=== PATIENT | female | born 2000 | race Caucasian/White ===

== ENCOUNTER → 2020-06-28 12:15 | Outpatient (BNVA) | payer SELFPAY | PROVIDERS: Visit Provider Nurse Practitioner Family | DX: Z11.59 Encounter for screening for other viral diseases (principal) | CPT/HCPCS: 87635 ==

== ENCOUNTER → 2021-04-04 11:41 | Outpatient (BNVA) | payer OTHER, SELFPAY | PROVIDERS: Visit Provider Nurse Practitioner Family | DX: Z20.822 Contact with and (suspected) exposure to COVID-19 (principal); J45.30 Mild persistent asthma, uncomplicated; J06.9 Acute upper respiratory infection, unspecified | CPT/HCPCS: 87635 ==

== ENCOUNTER 2022-01-12 11:34 | Emergency (ER) | payer MEDICAID, SELFPAY ==
[2022-01-12 12:24] VITALS: BP 134/82; PULSE 75; RESP 13; TEMP 36.8; O2SAT 99; BMI 27.3
--- NOTE | 2022-01-12 13:12 | ED_ITS ---
HPI - Nausea/Vomiting/Diarrhea General: Chief complaint: Abdominal Pain Stated complaint: Abd Pains Time Seen by Provider: 01/12/22 12:59 History of Present Illness: Patient is a 21-year-old female comes to the ED with nausea. Symptoms started this morning. She is also feeling a little bit of dizziness. 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 She feels like some of the nausea and dizziness is probably due to the PFT test. She did state that both her kids have had a GI bug with nausea and vomiting and she thinks she is starting to develop the same symptoms they had. Associated nausea: No Associated symtoms: Denies change in vision, chest pain, dysuria, fatigue, headache(s), nausea or palpitations Review of Systems Const: Denies: fever(s), chills or fatigue Eyes: Denies: change in vision or eye discomfort ENMT: Denies: throat pain, odynophagia, nasal discharge or nasal congestion Card: Denies: chest pain, palpitations, edema, swelling of feet/ankles, dyspnea on exertion or orthopnea Resp: Denies: dyspnea, productive cough or non-productive cough GI: Denies: abdominal pain, nausea, vomiting, diarrhea, constipation or hematochezia : Denies: flank pain, dysuria or hematuria Musc: Denies: neck pain, back pain or extremity swelling Skin/Breast: Denies: rash or new lesions Neuro: Denies: headache(s), numbness in extremities or weakness in extremities PFS ED PFSH: Medical History (Updated 04/04/21 @ 09:33 by JOHNY Forte) Asthma Course Vital Signs: Vital signs: Vital Signs Temperature 98.2 F 01/12/22 12:24 Pulse Rate 75 01/12/22 12:24 Respiratory Rate 13 01/12/22 12:24 Blood Pressure 134/82 01/12/22 12:24 Pulse Oximetry 99 01/12/22 12:24 Discharge Plan Discharge Condition: Stable Prescriptions: No Action albuterol sulfate [ProAir HFA] 90 mcg/actuation HFA aerosol inhaler 2 puff INHALATION Q6H [id number] Coding Level of Care Code ED Stone Carver for Aureag Tamar
--- NOTE | 2022-01-12 13:47 | ED_ITS ---
HPI - Abdominal Pain General: Chief Complaint: Abdominal Pain Stated Complaint: Abd Pains Time Seen by Provider: 01/12/22 12:59 History of Present Illness: Patient is a 21-year-old female comes to the ED with abdominal pain. Patient states that she has had this pain before in the past and she has flareups of this multiple times a year. She has been evaluated at [facility] before and they told her that she likely has gastritis and put her on omeprazole. Her abdominal pain is in the epigastric region and she describes it as a burning pain. She rates it a 7 out of 10. Says it worsens with certain foods especially spicy foods. She has some nausea but denies any emesis. Associated Symptoms: Reports heartburn and nausea; Denies chills, constipation, diarrhea, dysuria, fever(s), hematochezia, hematuria and vomiting Review of Systems Const: Denies: fever(s), chills or fatigue Eyes: Denies: change in vision or eye discomfort ENMT: Denies: throat pain, odynophagia, nasal discharge or nasal congestion Card: Denies: chest pain, palpitations, edema, swelling of feet/ankles, dyspn ea on exertion or orthopnea Resp: Denies: dyspnea, productive cough or non-productive cough GI: Reports: abdominal pain (epigastric buring pain), nausea and heartburn; Denies: vomiting, diarrhea, constipation or hematochezia : Denies: flank pain, dysuria or hematuria Musc: Denies: neck pain, back pain or extremity swelling Skin/Breast: Denies: rash or new lesions Neuro: Denies: headache(s), numbness in extremities or weakness in extremities [facility] ED PFSH: Medical History Asthma No pertinent family history Physical Exam Const: COMMON NORMALS: no acute distress, patient oriented x3, healthy appearing and alert GENERAL APPEARANCE: cooperative and comfortable HENMT: COMMON NORMALS: normocephalic HEAD & SCALP: normocephalic MOUTH: Normal oral and palatal mucosa present THROAT: posterior oropharynx normal and uvula midline Eye: COMMON NORMALS: Equal, round and reactive pupils present and conjunctivae normal CONJUNCTIVA: Yes conjunctivae normal PUPIL: Yes Equal, round and reactive pupils present Neck/C-Spine: COMMON NORMALS: supple GENERAL: Yes normal visual inspection Resp: COMMON NORMALS: normal respiratory effort, No retractions, No use of accessory muscles and clear to auscultation bilaterally AUSCULTATION: clear t o auscultation bilaterally Cardio: COMMON NORMALS: regular rate, regular rhythm, S1 normal heart sound present, S2 normal heart sound present, No gallops present (Cardio), No clicks present (Cardio), No murmurs present (Cardio) and Peripheral pulses 2+ throughout RATE: regular rate RHYTHM: regular rhythm HEART SOUNDS: S1 normal heart sound present and S2 normal heart sound present PERIPHERAL PULSES: Peripheral pulses 2+ throughout GI: COMMON NORMALS: Normal to inspection, nondistended, normoactive bowel sounds present, Soft to palpation and no masses PALPATION: Yes Soft to palpation and Yes Tenderness to palpation present (GI) (Mild epigastric tende rness) : COMMON NORMALS: Yes no CVA tenderness BLADDER/KIDNEY EXAM: Yes no CVA tenderness Back/Pelvis: COMMON NORMALS: no CVA tenderness Extremity: COMMON NORMALS: normal to inspection Neuro: COMMON NORMALS: patient oriented x3 SENSORIUM/ORIENTATION: Yes alert GAIT: Yes Normal gait present Skin: GENERAL SKIN EXAM: dry skin Course Vital Signs: Vital signs: Vital Signs Temperature 98.2 F 01/12/22 12:24 Pulse Rate 63 01/12/22 14:10 Respiratory Rate 13 01/12/22 12:24 Blood Pressure 124/65 01/12/22 14:10 Pulse Oximetry 97 01/12/22 14:10 MDM - Abdominal Pain Medical Decision Making Patient has history of acid reflux and is currently having a flareup of it. She is having some burning pain in the epigastric region. Vital stable. Patient appears nontoxic and in no acute distress or pain. Exam as mostly benign and she does have some mild epigastric tenderness. labs are unremarkable and H. pylori negative. Patient was given GI cocktail and her symptoms improved greatly. She is diagnosed with acid reflux and was discharged home with a prescription for Zofran and sucralfate. She was told to continue taking her omeprazole as previously prescribed. Return to ED precautions given. Follow-up with PCP in the next week for reevaluation. Patient understood and agreed with plan. Lab Data I reviewed the patient's lab results. : 01/12/22 14:11 01/12/22 15:56 Labs/Radiology: Laboratory Results WBC 9.7 10^3/uL (4.0-10.0) 01/12/22 14:11 RBC 4.71 10^6/uL (4.1-5.3) 01/12/22 14:11 Hgb 14.2 g/dL (11.5-15.3) 01/12/22 14:11 Hct 42.1 % (37.0-47.0) 01/12/22 14:11 MCV 89.4 fl (81-99) 01/12/22 14:11 MCH 30.1 pg (28.0-34.0) 01/12/22 14:11 MCHC 33.7 g/dL (30.0-36.0) 01/12/22 14:11 RDW 11.4 % (12.1-15.1) L 01/12/22 14:11 Plt Count 302 10^3/cmm (130-400) 01/12/22 14:11 MPV 10.7 fL (7.4-10.4) H 01/12/22 14:11 Neut % (Auto) 59.2 % 01/12/22 14:11 Lymph % (Auto) 30.2 % 01/12/22 14:11 Baldwin % (Auto) 6.5 % 01/12/22 14:11 Eos % (Auto) 2.8 % 01/12/22 14:11 Baso % (Auto) 1.0 % 01/12/22 14:11 Neut # (Auto) 5.73 10^3/uL (1.8-7.7) 01/12/22 14:11 Lymph # (Auto) 2.9 10^3/uL (0.8-4.8) 01/12/22 14:11 Baldwin # (Auto) 0.6 10^3/uL (0.2-0.9) 01/12/22 14:11 Eos # (Auto) 0.3 10^3/uL (0.0-0.8) 01/12/22 14:11 Baso # (Auto) 0.1 10^3/uL (0.0-0.1) 01/12/22 14:11 Nucleated RBC % (auto) 0 % 01/12/22 14:11 Nucleated RBCs # 0.0 /100WBC 01/12/22 14:11 Sodium 137 mmol/L (136-145) 01/12/22 15:56 Potassium 4.0 mmol/L (3.5-5.1) 01/12/22 15:56 Chloride 103 mmol/L (98-107) 01/12/22 15:56 Carbon Dioxide 22 mmol/L (22-29) 01/12/22 15:56 Anion Gap 16.0 (5-19) 01/12/22 15:56 BUN 9 mg/dL (6-20) 01/12/22 15:56 Creatinine 0.6 mg/dL (0.5-0.9) 01/12/22 15:56 GFR Calculation 123.9 mL/min (90-130) 01/12/22 15:56 Glucose 84 mg/dL (65-115) 01/12/22 15:56 Calculated Osmolality 282 mOsm/kg (285-295) L 01/12/22 15:56 Calcium 8.5 mg/dL (8.5-10.5) 01/12/22 15:56 Total Bilirubin 0.3 mg/dL (0.15-1.2) 01/12/22 15:56 AST 15 U/L (0-32) 01/12/22 15:56 ALT 12 U/L (0-33) 01/12/22 15:56 Alkaline Phosphatase 50 IU/L (35-105) 01/12/22 15:56 Total Protein 6.5 g/dL (6.6-8.7) L 01/12/22 15:56 Albumin 4.3 g/dL (3.5-5.2) 01/12/22 15:56 Globulin 2.2 g/dL (1.3-4.6) 01/12/22 15:56 HCG, Qual Negative (Negative) 01/12/22 15:16 Urine Color Yellow (Yellow) 01/12/22 15:16 Urine Appearance Clear (CLEAR) 01/12/22 15:16 Urine pH 6 (5-7) 01/12/22 15:16 Ur Specific Braxton 1.010 (1.005-1.030) 01/12/22 15:16 Urine Protein Neg (Negative) 01/12/22 15:16 Urine Glucose (UA) Norm (Normal) 01/12/22 15:16 Urine Ketones Negative (Negative) 01/12/22 15:16 Urine Blood Neg (Negative) 01/12/22 15:16 Urine Nitrate Negative (Negative) 01/12/22 15:16 Urine Bilirubin Neg (Negative) 01/12/22 15:16 Urine Urobilinogen Neg mg/dL (Negative) 01/12/22 15:16 Ur Leukocyte Esterase Negative (Negative) 01/12/22 15:16 H. pylori IgG Antibody Negative (Negative) 01/12/22 14:11 Discharge Plan Discharge Patient Disposition: Home Clinical Impression: Acid reflux disease Condition: Stable Prescriptions: New sucralfate 1 gram tablet 1 g PO Q6H 14 Days Qty: 56 0RF ondansetron 4 mg tablet,disintegrating 4 mg PO Q8H PRN (Reason: nausea and vomiting) Qty: 20 0RF No Action albuterol sulfate [ProAir HFA] 90 mcg/actuation HFA aerosol inhaler 2 puff INHALATION Q6H PRN (Reason: Shortness Of Breath) 0RF Discharge Orders: Discharge ED (Routine); Ordered 01/12/22 Ordered By: Myles Pagan Discharge Diet: Regular Discharge Activity: Resume usual activity Patient Instructions: GERD (Gastroesophageal Reflux Disease) (DC) Activity Restrictions/Additional Instructions: Follow-up with medical provider as directed in the next 5 to 7 days ree valuation. Continue taking your previously prescribed omeprazole daily as directed. Take medications as prescribed. Return to the ER or your medical provider if condition worsens. Please read and understand discharge instructions. Thank you for choosing [facility] for your healthcare needs today. Please realize this is an emergency room and that we are providing you with a medical screening exam and this may not be complete and all inclusive of all the testing and or work up that you may need to determine your ailment or severity of your illness. It is very important that you follow up as instructed or that you return to the Emergency Department should you have concerns or if your condition changes or worsens in any way. Coding Level of Care Code ED Centerless Grinder Operator for Sylvester Boyle Exam Comprehensive
[2022-01-12] MEDS: lidocaine 2% viscous 15 ML, aluminum-mag hydrox-simethicon 30 ML, sucralfate oral liq 1 GM PO (14:00)
[2022-01-12] MEDS: ondansetron 2 mg/ML SDV 2 mL 4 MG IVP (14:00)
[2022-01-12] MEDS: sodium chloride 0.9% 1,000 ML 999 ML IV (14:01)
[2022-01-12 14:10] VITALS: BP 124/65; PULSE 63; O2SAT 97
[2022-01-12 14:13] LABS: Basophils # 0.1 10^3/uL (0.0-0.1); Eosinophils # 0.3 10^3/uL (0.0-0.8); Eosinophils % 2.8 %; Hematocrit 42.1 % (37.0-47.0); Hemoglobin 14.2 g/dL (11.5-15.3); Lymphocytes # 2.9 10^3/uL (0.8-4.8); Lymphocytes % 30.2 %; Mean Corpuscular HGB Conc 33.7 g/dL (30.0-36.0); Mean Corpuscular Hemoglobin 30.1 pg (28.0-34.0); Mean Corpuscular Volume 89.4 fl (81-99); Mean Platelet Volume 10.7 fL (7.4-10.4); Monocytes # 0.6 10^3/uL (0.2-0.9); Monocytes % 6.5 %; Neutrophils # 5.73 10^3/uL (1.8-7.7); Neutrophils % 59.2 %; Nucleated Red Blood Cells % 0 %; Platelet Count 302 10^3/cmm (130-400); Red Blood Count 4.71 10^6/uL (4.1-5.3); Red Cell Distribution Width 11.4 % (12.1-15.1); White Blood Count 9.7 10^3/uL (4.0-10.0)
[2022-01-12 15:20] LABS: H. Pylori IgG Antibody Negative (Negative)
[2022-01-12 15:29] LABS: Add Urine Microscopic? NO; Charge for UA Resulting for Rev
[2022-01-12 15:41] LABS: Bilirubin Urine Neg (Negative); Blood Urine Neg (Negative); Glucose Urine UA Norm (Normal); HCG Qualitative Urine. Negative (Negative); Ketones Urine Negative (Negative); Leukocyte Esterase Urine Negative (Negative); Nitrate Urine Negative (Negative); Protein Urine Neg (Negative); Urine Appearance Clear (CLEAR); Urine Color Yellow (Yellow); Urobilinogen Urine Neg (Negative); pH Urine 6 (5-7)
[2022-01-12 16:31] LABS: Alanine Aminotransferase 12 U/L (0-33); Albumin Level 4.3 g/dL (3.5-5.2); Alkaline Phosphatase 50 IU/L (35-105); Aspartate Amino Transferase 15 U/L (0-32); Blood Urea Nitrogen 9 mg/dL (6-20); Calcium 8.5 mg/dL (8.5-10.5); Carbon Dioxide 22 mmol/L (22-29); Chloride 103 mmol/L (98-107); Globulin 2.2 g/dL (1.3-4.6); Glomerular Filtration Rate 123.9 mL/min (90-130); Glucose 84 mg/dL (65-115); Osmolality Calculated 282 mOsm/kg (285-295); Sodium 137 mmol/L (136-145); Total Bilirubin 0.3 mg/dL (0.15-1.2); Total Protein 6.5 g/dL (6.6-8.7)
[2022-01-12 16:55] VITALS: BP 124/65; PULSE 65; RESP 20; O2SAT 95
== END 2022-01-12 16:57 | disposition home or self-care (01) ==
PROVIDERS: Family Medicine; Emergency Provider Physician Assistant
DX: K21.9 Gastro-esophageal reflux disease without esophagitis (principal)
CPT/HCPCS: 80053; 81003; 81025; 85025; 86677; 96361; 96374; 99284; J2405; J7030

== ENCOUNTER 2022-01-13 18:23 | Emergency (ER) | payer MEDICAID, SELFPAY ==
[2022-01-13 18:29] VITALS: BP 105/67; PULSE 79; RESP 18; TEMP 36.3; O2SAT 97; BMI 27.3
--- NOTE | 2022-01-13 18:38 | W.ED.ABDPA2 ---
Documented by User: RITA Acuña 01/13/22 19:23 HPI - Abdominal Pain General: Chief Complaint: Abdominal Pain Stated Complaint: ABD pain Time Seen by Provider: 01/13/22 18:38 History of Present Illness: 21-year-old female comes in today with complaints of epigastric pain. Patient was seen yesterday and given a GI cocktail with relief of pain. Review of the labs noted no abnormalities in liver enzymes, urinalysis, CBC, lipase, and a negative hCG. Patient denies any vomiting or diarrhea. Patient reports mainly just pain and discomfort. Patient appears in mild to moderate discomfort. Patient appears nontoxic. Associated Symptoms: Denies fever(s) and vomiting Review of Systems General: Reports: 10 or more systems reviewed and unremarkable except in HPI and below Const: Denies: fever(s) Card: Denies: chest pain Resp: Denies: dyspnea GI: Reports: abdominal pain; Denies: vomiting : Denies: difficulty voiding PFS ED PFSH: Medical History Asthma No pertinent family history Physical Exam Const: COMMON NORMALS: alert Neck/C-Spine: COMMON NORMALS: full ROM Resp: COMMON NORMALS: normal respiratory effort and clear to auscultation bilaterally AUSCULTATION: clear to auscultation bilaterally Cardio: COMMON NORMALS: regular rate RATE: regular rate GI: COMMON NORMALS: Soft to palpation PALPATION: Yes Soft to palpation and Yes Tenderness to palpation present (GI) (epigastric) : COMMON NORMALS: Yes no CVA tenderness BLADDER/KIDNEY EXAM: Yes no CVA tenderness Back/Pelvis: COMMON NORMALS: no CVA tenderness Extremity: COMMON NORMALS: full ROM Neuro: SENSORIUM/ORIENTATION: Yes alert Course ED course: 0, patient was given a dose of a GI cocktail with immediate relief of symptoms. Discussed with patient prescription she was given yesterday she was not on any PPI at this time. I recommended we stop the Carafate and put her on pantoprazole 40 mg daily. I also discussed other treatment for reflux disease. Patient reported understanding and agreed to plan. Vital Signs: Vital signs: Vital Signs Temperature 97.3 F L 01/13/22 18:29 Pulse Rate 61 01/13/22 19:19 Respiratory Rate 14 01/13/22 19:19 Blood Pressure 97/65 01/13/22 19:19 Pulse Oximetry 97 01/13/22 18:29 MDM - Abdominal Pain Medical Decision Making Patient comes in today for exacerbation of abdominal pain and gastric reflux. Patient has had this problem before. Patient was started on Carafate and Zofran yesterday without any relief in symptoms. Patient was not on any PPI at this time. On exam abdomen soft with some epigastric tenderness. Vital signs are normal. Review of the labs from yesterday indicated no red flags such as abnormal liver enzymes, lipase, or . Differential diagnosis includes but not limited to peptic ulcer disease, gastritis, GERD. Patient was given a GI cocktail with relief of symptoms. Patient be started on pantoprazole 40 mg daily. Recommended use of Mylanta as needed for breakthrough symptoms while the pantoprazole works. Patient reported understanding of care plan need for follow-up or return to the ER and further investigation with primary care. Discharge Plan Discharge Patient Disposition: Home Clinical Impression: Acid reflux disease Qualifiers: Esophagitis presence: esophagitis presence not specified Qualified Code(s): K21.9 - Gastro-esophageal reflux disease without esophagitis Condition: Stable Prescriptions: New pantoprazole 40 mg tablet,delayed release (DR/EC) 40 mg PO DAILY Qty: 30 3RF No Action albuterol sulfate [ProAir HFA] 90 mcg/actuation HFA aerosol inhaler 2 puff INHALATION Q6H PRN (Reason: Shortness Of Breath) 0RF sucralfate 1 gram tablet 1 g PO Q6H 14 Days Qty: 56 0RF ondansetron 4 mg tablet,disintegrating 4 mg PO Q8H PRN (Reason: nausea and vomiting) Qty: 20 0RF Discharge Orders: Discharge ED (Routine); Ordered 01/13/22 Ordered By: Martínez Vale Discharge Diet: Usual diet Discharge Activity: Increase activity as tolerated Patient Instructions: Diet for Stomach Ulcers and Gastritis (ED), GERD (Gastroesophageal Reflux Disease) (ED), Opioid Safety Activity Restrictions/Additional Instructions: Stop Carafate. Take pantoprazole 40 mg, 30 minutes prior to the first meal of the day. It is very important to do this in order to prevent irritation of the stomach and esophagus. Avoid eating 2 hours before bedtime. Restrict alcoholic beverages to 1 a day or none. Avoid carbonated beverages. You may also notice other foods aggravate your reflux. If you have increased symptoms when you lie down at night you may try raising the head of your bed. This can be achieved by sleeping on 2 pillows, you must position the pillow so your shoulders are on the pillows so your stomach is below your chest. Also it has been shown that lying on the left side can reduce gastric symptoms. You will need to take pantoprazole at least for 3 to 6 months for full healing of the stomach lining and esophagus. Follow-up with primary care in 2 weeks. If symptoms persist you may need to have an increase in the dosing of the medication to twice a day, or further evaluation with EGD which is a scope looking into your stomach and esophagus. Coding Level of Care Code ED Physical Medicine Teacher for Chg Fwd Exam Detailed Documented by User: Olaf Oro DO 01/13/22 22:27 HPI - Abdominal Pain General: Chief Complaint: Abdominal Pain Stated Complaint: ABD pain Time Seen by Provider: 01/13/22 18:38 PFSH ED PFSH: Medical History Asthma No pertinent family history Course Vital Signs: Vital signs: Vital Signs Temperature 97.3 F L 01/13/22 18:29 Pulse Rate 61 01/13/22 19:19 Respiratory Rate 14 01/13/22 19:19 Blood Pressure 97/65 01/13/22 19:19 Pulse Oximetry 97 01/13/22 18:29 MDM - Abdominal Pain Medical Decision Making Patient comes in today for exacerbation of abdominal pain and gastric reflux. Patient has had this problem before. Patient was started on Carafate and Zofran yesterday without any relief in symptoms. Patient was not on any PPI at this time. On exam abdomen soft with some epigastric tenderness. Vital signs are normal. Review of the labs from yesterday indicated no red flags such as abnormal liver enzymes, lipase, or . Differential diagnosis includes but not limited to peptic ulcer disease, gastritis, GERD. Patient was given a GI cocktail with relief of symptoms. Patient be started on pantoprazole 40 mg daily. Recommended use of Mylanta as needed for breakthrough symptoms while the pantoprazole works. Patient reported understanding of care plan need for follow-up or return to the ER and further investigation with primary care. This patient was originally seen by RITA Ugarte.? I agree with his history, evaluation, and treatment. Discharge Plan Discharge Patient Disposition: Home Clinical Impression: Acid reflux disease Qualifiers: Esophagitis presence: esophagitis presence not specified Qualified Code(s): K21.9 - Gastro-esophageal reflux disease without esophagitis Condition: Stable Prescriptions: New pantoprazole 40 mg tablet,delayed release (DR/EC) 40 mg PO DAILY Qty: 30 3RF No Action albuterol sulfate [ProAir HFA] 90 mcg/actuation HFA aerosol inhaler 2 puff INHALATION Q6H PRN (Reason: Shortness Of Breath) 0RF sucralfate 1 gram tablet 1 g PO Q6H 14 Days Qty: 56 0RF ondansetron 4 mg tablet,disintegrating 4 mg PO Q8H PRN (Reason: nausea and vomiting) Qty: 20 0RF Discharge Orders: Discharge ED (Routine); Ordered 01/13/22 Ordered By: Martínez Vale Discharge Diet: Usual diet Discharge Activity: Increase activity as tolerated Patient Instructions: Diet for Stomach Ulcers and Gastritis (ED), GERD (Gastroesophageal Reflux Disease) (ED), Opioid Safety Activity Restrictions/Additional Instructions: Stop Carafate. Take pantoprazole 40 mg, 30 minutes prior to the first meal of the day. It is very important to do this in order to prevent irritation of the stomach and esophagus. Avoid eating 2 hours before bedtime. Restrict alcoholic beverages to 1 a day or none. Avoid carbonated beverages. You may also notice other foods aggravate your reflux. If you have increased symptoms when you lie down at night you may try raising the head of your bed. This can be achieved by sleeping on 2 pillows, you must position the pillow so your shoulders are on the pillows so your stomach is below your chest. Also it has been shown that lying on the left side can reduce gastric symptoms. You will need to take pantoprazole at least for 3 to 6 months for full healing of the stomach lining and esophagus. Follow-up with primary care in 2 weeks. If symptoms persist you may need to have an increase in the dosing of the medication to twice a day, or further evaluation with EGD which is a scope looking into your stomach and esophagus. Coding Level of Care Code ED Physical Medicine Teacher for Chg Fwd Exam Detailed
[2022-01-13] MEDS: lidocaine 2% viscous 15 ML, aluminum-mag hydrox-simethicon 30 ML, sucralfate oral liq 1 GM PO (18:49)
[2022-01-13 19:19] VITALS: BP 97/65; PULSE 61; RESP 14
[2022-01-13] MEDS: pantoprazole DR 40 mg Tablet PO (19:22)
== END 2022-01-13 19:30 | disposition home or self-care (01) ==
PROVIDERS: Emergency Provider Nurse Practitioner Family
DX: K21.9 Gastro-esophageal reflux disease without esophagitis (principal)
CPT/HCPCS: 99283

== ENCOUNTER 2022-02-16 09:43 | Day surgery (SDC) | payer MEDICAID, SELFPAY ==
[2022-02-16 06:58] VITALS: BMI 26.6
--- NOTE | 2022-02-16 09:50 | W.PM.OPSUD ---
Surgery/Procedure H&P Update DATE OF PROCEDURE: February 16, 2022 DATE H&P PERFORMED: 01/23/22 H&P UPDATE INFORMATION: I have reviewed H&P completed within last 30 days, I have examined patient prior to procedure and Changes to prior documentation as noted here (Patient was supposed to be getting an EGD and colonoscopy today but for some reason there was a miscommunication. She was counseled to have rescheduling but she elected to proceed with EGD today.) PREOP DIAGNOSIS: Abdominal pain and change in bowel habits PRIMARY INDICATION FOR PROCEDURE: The same PLANNED PROCEDURE: Operation Date: 02/16/22 11:15 Proposed Procedures p EGD 74558,R19.7,R10.13(Not Applicable) - Elian Baron MD
[2022-02-16 10:14] VITALS: BP 98/66; PULSE 66; RESP 18; TEMP 36.2; O2SAT 99
[2022-02-16 10:21] LABS: OR HCG Qualitative Urine Negative (Negative)
[2022-02-16] MEDS: sodium chloride 0.9% 1,000 ML 30 ML IV ×2 (10:30→12:00)
--- NOTE | 2022-02-16 11:10 | P.ANESASSM_ITS ---
Pre-Anesthetic Assessment Height/Weight: Height 1.73 m Weight 79.379 kg Temp Pulse Resp BP Pulse Ox 97.2 F L 66 18 98/66 99 02/16/22 10:14 02/16/22 10:14 02/16/22 10:14 02/16/22 10:14 02/16/22 10:14 Preop Diagnosis: Abdominal pain and change in bowel habits Operation Date: 02/16/22 11:15 Proposed Procedures p EGD 63275,R19.7,R10.13(Not Applicable) - Elian Baron MD Familial anesthetic complications: None Was Beta Saumya taken within 24 hours: N/A Was Clonidine taken within 24 hours: N/A Last intake: Intake Last Liquid Date 02/15/22 Last Liquid Time 23:00 Last Solid Date 02/15/22 Last Solid Time 23:00 Social Tobacco (vapes) and No alcohol Exam alert, oriented x 3, clear to auscultation bilaterally and regular rate & rhythm Airway Submandibular: within normal limits Cervical ROM: within normal limits Mallampati: Class II Dentition: full Pulmonary Asthma GI Gastroesophageal Reflux Disease Anesthetic Plan ASA status: 2 Anesthesia: MAC Medications/Allergies Home Medications Medication Instructions Recorded Confirmed Last Taken Type albuterol sulfate 90 mcg/actuation 2 puff INHALATION Q6H PRN 06/28/20 02/16/22 02/13/22 History aerosol inhaler (ProAir HFA) ondansetron 4 mg disintegrating 4 mg PO Q8H PRN #20 tab 01/12/22 02/16/22 02/14/22 Rx tablet pantoprazole 40 mg tablet,delayed 40 mg PO DAILY #30 tab 01/13/22 02/16/22 02/15/22 Rx release Allergies Allergy/AdvReac Type Severity Reaction Status Date / Time No Known Allergies Allergy Verified 01/25/22 16:52 Current Medications Generic Name Dose Route Start Last Admin Trade Name Freq PRN Reason Stop Dose Admin Sodium Chloride 1,000 mls @ 30 mls/hr 02/16/22 10:00 02/16/22 10:30 Sodium Chloride 0.9% IV 30 mls/hr .Q24H LISA Administration PFSH Anesthesia Medical History Asthma No pertinent family history Family History Other Cancer Diabetes Hypertension Social History Smoking and tobacco status: smoker, details unknown (vaping) e-cigarettes E- Cigarette Details: vaporizer device Data Anesthesia Cardiac Studies: No Data to Display
[2022-02-16 12:13] VITALS: BP 94/53; PULSE 71; RESP 17; TEMP 36.2; O2SAT 95
--- NOTE | 2022-02-16 12:18 | ANE.PACU2 ---
Inpatient post-anesthesia follow up: Airway intact: Yes Vital signs: Temperature 97.2 F Pulse Rate 66 Respiratory Rate 18 Blood Pressure 98/66 Pulse Oximetry 99 Oxygen Delivery Me thod Room Air Oxygen Flow Rate Fraction of Inspir ed Oxygen Hydration adequate: Yes Nausea and vomiting: No Pain level: 1 Mental status: Baseline
[2022-02-16 12:24] VITALS: BP 99/59; PULSE 67; RESP 18; O2SAT 98
== END 2022-02-16 12:45 | disposition home or self-care (01) ==
PROVIDERS: Anesthesiology; PCP Registered Nurse; Visit Provider Surgery
PROC: 0DJ08ZZ Inspection of Upper Intestinal Tract, Via Natural or Artificial Opening Endoscopic (ICD-10-PCS; CPT 43235; principal; 2022-02-16 11:15)
DX: R10.13 Epigastric pain (principal); R19.7 Diarrhea, unspecified; K31.7 Polyp of stomach and duodenum; K29.80 Duodenitis without bleeding; F17.290 Nicotine dependence, other tobacco product, uncomplicated; J45.909 Unspecified asthma, uncomplicated; K21.9 Gastro-esophageal reflux disease without esophagitis
CPT/HCPCS: 43239; 81025; 84703; 88305; 88342; J2704; J7030

== ENCOUNTER 2022-02-21 12:25 | Outpatient (CLI) | payer MEDICAID, SELFPAY ==
[2022-02-21 13:55] LABS: Immunoglobulin IGA 149 mg/dL (70-400)
[2022-02-24 04:23] LABS: Tissue Transglutaminse AB IGA <1.0 U/mL; Tissue Transglutaminse AB IGG <1.0 U/mL
[2022-02-28 16:44] LABS: Endomysial Antibody IGG SCREEN NEGATIVE
== END 2022-02-21 12:26 | disposition home or self-care (01) ==
LOC: LAB 12:30
PROVIDERS: PCP Registered Nurse; Visit Provider Surgery
DX: K29.80 Duodenitis without bleeding (principal); R19.4 Change in bowel habit
CPT/HCPCS: 82784; 83516

== ENCOUNTER 2022-03-17 05:59 | Outpatient (CLI) | payer MEDICAID, SELFPAY ==
--- NOTE | 2022-03-17 06:15 | US_ITS ---
WS: [id number] RIGHT UPPER QUADRANT ULTRASOUND HISTORY: Abdominal and RIGHT upper quadrant pain. COMPARISON: None available. Liver: 14.8 cm in length. Normal size liver. No bile duct dilatation or mass. Portal Vein: Normal hepatopetal flow with monophasic waveform. Gallbladder: Normally distended gallbladder with no stones or wall thickening. CBD: 0.4 cm Pancreas: Nearly completely obscured by bowel gas. Very limited visualization. Right kidney: 10.2 cm in length. Normal size and echogenicity. No hydronephrosis or mass. Aorta and IVC: Unremarkable abdominal aorta and IVC. No ascites. US/US gall bladder [id number] IMPRESSION: Limited visualization of the pancreas. Otherwise RIGHT upper quadrant ultrasoun d is negative.
== END 2022-03-17 06:00 | disposition home or self-care (01) ==
LOC: RAD 06:00
PROVIDERS: PCP Registered Nurse; Visit Provider Surgery
DX: R19.7 Diarrhea, unspecified (principal); R10.9 Unspecified abdominal pain
CPT/HCPCS: 76705

== ENCOUNTER 2022-03-30 07:52 | Day surgery (SDC) | payer MEDICAID, SELFPAY ==
[2022-03-28 15:14] VITALS: BMI 26.6
[2022-03-30 08:34] VITALS: BP 114/76; PULSE 88; RESP 18; TEMP 36.2; O2SAT 96
[2022-03-30] MEDS: sodium chloride 0.9% 1,000 ML 30 ML IV (08:37)
[2022-03-30 08:40] LABS: OR HCG Qualitative Urine Negative (Negative)
--- NOTE | 2022-03-30 09:00 | W.PM.OPSUD ---
Surgery/Procedure H&P Update DATE OF PROCEDURE: March 30, 2022 DATE H&P PERFORMED: 03/06/22 H&P UPDATE INFORMATION: I have reviewed H&P completed within last 30 days, I have examined patient prior to procedure and No changes to prior documentation PREOP DIAGNOSIS: Change in bowel habits and abdominal pain PRIMARY INDICATION FOR PROCEDURE: The same PLANNED PROCEDURE: Operation Date: 03/30/22 09:30 Proposed Procedures p Colonoscopy(Not Applicable) - Elian Baron MD
--- NOTE | 2022-03-30 09:24 | P.ANESASSM_ITS ---
Pre-Anesthetic Assessment Height/Weight: Height 1.73 m Weight 79.379 kg Temp Pulse Resp BP Pulse Ox 97.2 F L 88 18 114/76 96 03/30/22 08:34 03/30/22 08:34 03/30/22 08:34 03/30/22 08:34 03/30/22 08:34 Preop Diagnosis: Change in bowel habits and abdominal pain Operation Date: 03/30/22 09:30 Proposed Procedures p Colonoscopy(Not Applicable) - Elian Baron MD Familial anesthetic complications: none Last intake: Intake Last Liquid Date 03/29/22 Last Liquid Time 23:00 Last Solid Date 03/28/22 Last Solid Time 22:00 Social No alcohol and No tobacco Airway Submandibular: within normal limits Cervical ROM: within normal limits Mallampati: Class II Dentition: full Pulmonary None reported CV/HEM None reported None reported Hepatic None reported GI h-pylori, change in bowel habits. Metabolic None reported Musc/skel None reported Neuropsych None reported Anesthetic Plan ASA status: 2 Medications/Allergies Home Medications Medication Instructions Recorded Confirmed Last Taken Type albuterol sulfate 90 mcg/actuation 2 puff INHALATION Q6H PRN 06/28/20 03/30/22 03/29/22 History aerosol inhaler (ProAir HFA) ondansetron 4 mg disintegrating 4 mg PO Q8H PRN #20 tab 01/12/22 03/30/22 03/29/22 Rx tablet pantoprazole 40 mg tablet,delayed 40 mg PO DAILY #30 tab 01/13/22 03/30/22 03/29/22 Rx release amoxicillin 500 mg tablet 1,000 mg PO BID 14 Days #56 tab 03/06/22 03/30/22 03/29/22 Rx Allergies Allergy/AdvReac Type Severity Reaction Status Date / Time No Known Allergies Allergy Verified 03/30/22 08:34 Current Medications Generic Name Dose Route Start Last Admin Trade Name Freq PRN Reason Stop Dose Admin Sodium Chloride 1,000 mls @ 30 mls/hr 03/30/22 08:15 03/30/22 08:37 Sodium Chloride 0.9% IV 03/31/22 08:14 30 mls/hr .Q24H LISA Administration PFSH Anesthesia Medical History Asthma No pertinent family history Family History Other Cancer Diabetes Hypertension Social History Smoking and tobacco status: smoker, details unknown (vaping) e-cigarettes E- Cigarette Details: vaporizer device Data Anesthesia Cardiac Studies: No Data to Display
[2022-03-30 09:51] VITALS: BP 87/59; PULSE 80; RESP 16; TEMP 36.3; O2SAT 96
[2022-03-30 10:03] VITALS: BP 97/58; PULSE 74; RESP 16; O2SAT 98
--- NOTE | 2022-03-30 14:46 | ANE.PACU2 ---
Inpatient post-anesthesia follow up: Airway intact: Yes Vital signs: Temperature 97.4 F Pulse Rate 74 Respiratory Rate 16 Blood Pressure 97/58 Pulse Oximetry 98 Oxygen Delivery Me thod Room Air Oxygen Flow Rate Fraction of Inspir ed Oxygen Hydration adequate: Yes Nausea and vomiting: No Pain level: 1 Mental status: Baseline
== END 2022-03-30 10:11 | disposition home or self-care (01) ==
PROVIDERS: Anesthesiology; Visit Provider Surgery
PROC: 0DJD8ZZ Inspection of Lower Intestinal Tract, Via Natural or Artificial Opening Endoscopic (ICD-10-PCS; CPT 45378; principal; 2022-03-30 09:30)
DX: R19.7 Diarrhea, unspecified (principal); R10.13 Epigastric pain; J45.909 Unspecified asthma, uncomplicated; F17.290 Nicotine dependence, other tobacco product, uncomplicated
CPT/HCPCS: 45378; 81025; 82274; 83630; 84703; 87493; 87506; J2704; J7030